=== PATIENT | female | born 1980 | race Caucasian/White ===

== ENCOUNTER 2018-01-13 11:34 | Inpatient (IN) | payer OTHER ==
[~2018-01-13] VITALS: Ht 160 cm; Wt 2.7 kg
[2018-01-13] MEDS ORDERED: PRENATAL 19 TA1 EACH PO (12:27)
[2018-01-13] MEDS ORDERED: SYNTHROID50 MCG PO (12:28)
== END 2018-01-16 14:13 | DRG 775 ==
LOC: EDBD 11:34 → LDR 11:34 → OB/GYN 01-14 21:14
PROC: 10E0XZZ Delivery of Products of Conception, External Approach (ICD-10-PCS; principal; 2018-01-14)
PROC: 0KQM0ZZ Repair Perineum Muscle, Open Approach (ICD-10-PCS; 2018-01-14)
PROC: 10907ZC Drainage of Amniotic Fluid, Therapeutic from Products of Conception, Via Natural or Artificial Opening (ICD-10-PCS; 2018-01-14)
PROC: 3E0P7VZ Introduction of Hormone into Female Reproductive, Via Natural or Artificial Opening (ICD-10-PCS; 2018-01-14)
PROC: 3E033VJ Introduction of Other Hormone into Peripheral Vein, Percutaneous Approach (ICD-10-PCS; 2018-01-14)
PROC: 4A1HXCZ Monitoring of Products of Conception, Cardiac Rate, External Approach (ICD-10-PCS; 2018-01-14)
DX: O70.1 Second degree perineal laceration during delivery (principal); Z37.0 Single live birth; Z3A.37 37 weeks gestation of pregnancy

== ENCOUNTER 2018-10-13 19:56 | Emergency (ER) | payer OTHER ==
[~2018-10-13] VITALS: Ht 160 cm; Wt 95.3 kg
[~2018-10-13 19:56] MED LIST: PRENATAL 19 TA1 EACH PO; SYNTHROID50 MCG PO
== END 2018-10-13 21:56 | disposition home or self-care (01) ==
LOC: ER 19:56
DX: J11.1 Influenza due to unidentified influenza virus with other respiratory manifestations (principal)